=== PATIENT | female | born 1960 | race Caucasian/White ===

== ENCOUNTER 2017-08-10 06:18 | Observation (INO) | payer MEDICARE, OTHER ==
[~2017-08-10] VITALS: Ht 172.7 cm; Wt 95.0 kg
[2017-08-10 06:25] VITALS: BP 162/69; PULSE 112; RESP 18; TEMP 100.1; O2SAT 98
--- NOTE | 2017-08-10 06:31 | PD ---
HPI Chief Complaint: AMS Time Seen by Provider: 06:37 Travel History International Travel<30 days: No Contact w/Intl Traveler<30days: No Traveled to known affect area: No History of Present Illness HPI 57-year-old female presents under Meneses act initially by the Police Department. According to paramedics patient has been acting manic. Duration of symptoms are unknown. Please were initially called by the of the patient. Paramedics are aware that she is prescribed Xanax and fentanyl but she has reportedly been out of these medications for the past 4 days. Any additional past medical or psychiatric history is unobtainable at this time. Upon examination the patient is altered, making nonsensical statements such as "blew off biggest [place] [employer] [place] She is noted to have an elevated temperature of 100.1 orally she is tachycardic. According her Meneses act form she was hallucinating and attempted to jump through a window at her residence. [facility] Social History Tobacco Use: No (unable to obtain) Allergies-Medications (Allergen,Severity, Reaction): Coded Allergies: Penicillins (Verified Allergy, Unknown, 08/10/17) Reported Meds & Prescriptions Reported Meds & Active Scripts Active Active Prescriptions or Reported Medications Unobtainable Review of Systems ROS Limitations: Altered Mental Status Except as stated in HPI: all other systems reviewed are Neg Physical Exam Exam Limitations: Altered Mental Status Narrative GENERAL: Well-developed well-nourished female who is in no acute distress. She is alert to person but not place or time. SKIN: Warm and dry. HEAD: Atraumatic. Normocephalic. EYES: Pupils equal and round, dilated, extraocular muscles are intact. No scleral icterus. No injection or drainage. ENT: No nasal bleeding or discharge. Mucous membranes pink and moist. NECK: Trachea midline. No JVD. No lymphadenopathy. Neck is supple full range of motion. CARDIOVASCULAR: Regular rate and rhythm. No murmur appreciated. RESPIRATORY: No accessory muscle use. Clear to auscultation. Breath sounds equal bilaterally. GASTROINTESTINAL: Abdomen soft, non-tender, nondistended. Hepatic and splenic margins not palpable. MUSCULOSKELETAL: No obvious deformities. No clubbing. No cyanosis. No edema. There is no obvious tenderness to palpation along the neck or back. NEUROLOGICAL: Awake and alert. No obvious cranial nerve deficits. Motor grossly within normal limits rapid speech. PSYCHIATRIC: insight and judgment are grossly impaired. Data Data Last Documented VS Vital Signs Date Time Temp Pulse Resp B/P (MAP) Pulse Ox O2 Delivery O2 Flow Rate FiO2 08/10/17 07:42 93 18 139/67 (91) 98 Room Air 08/10/17 06:25 100.1 Orders Orders Electrocardiogram (08/10/17 06:40) Ammonia (08/10/17 06:40) Complete Blood Count With Diff (08/10/17 06:40) Comprehensive Metabolic Panel (08/10/17 06:40) Thyroid Stimulating Hormone (08/10/17 06:40) Urinalysis - C+S If Indicated (08/10/17 06:40) Lactic Acid Sepsis Protocol (08/10/17 06:40) Blood Culture (08/10/17 06:40) Chest, Single Ap (08/10/17 06:40) Ct Brain W/O Iv Contrast(Rout) (08/10/17 06:40) Blood Glucose (08/10/17 06:40) Ecg Monitoring (08/10/17 06:40) Iv Access Insert/Monitor (08/10/17 06:40) Oximetry (08/10/17 06:40) Sodium Chloride 0.9% Flush (Ns Flush) (08/10/17 06:45) Sodium Chlor 0.9% 1000 Ml Inj (Ns 1000 M (08/10/17 06:40) Drug Screen, Random Urine (08/10/17 06:40) Alcohol (Ethanol) (08/10/17 06:40) Psych Screen (08/10/17 06:40) Prothrombin Time / Inr (Pt) (08/10/17 08:04) Act Partial Throm Time (Ptt) (08/10/17 08:04) Lorazepam Inj (Ativan Inj) (08/10/17 08:15) Vancomycin Inj (Vancomycin Inj) (08/10/17 08:15) Ceftriaxone Inj (Rocephin Inj) (08/10/17 08:15) Urine Culture (08/10/17 07:30) Admit Order (Ed Use Only) (08/10/17 09:38) Morphine Inj (Morphine Inj) (08/10/17 09:45) Labs Laboratory Tests Test 08/10/17 06:45 08/10/17 07:30 08/10/17 08:25 White Blood Count 10.5 TH/MM3 Red Blood Count 4.45 MIL/MM3 Hemoglobin 13.4 GM/DL Hematocrit 39.4 % Mean Corpuscular Volume 88.5 FL Mean Corpuscular Hemoglobin 30.1 PG Mean Corpuscular Hemoglobin Concent 34.0 % Red Cell Distribution Width 13.3 % Platelet Count 556 TH/MM3 Mean Platelet Volume 7.0 FL Neutrophils (%) (Auto) 82.2 % Lymphocytes (%) (Auto) 11.5 % Monocytes (%) (Auto) 5.9 % Eosinophils (%) (Auto) 0.1 % Basophils (%) (Auto) 0.3 % Neutrophils # (Auto) 8.6 TH/MM3 Lymphocytes # (Auto) 1.2 TH/MM3 Monocytes # (Auto) 0.6 TH/MM3 Eosinophils # (Auto) 0.0 TH/MM3 Basophils # (Auto) 0.0 TH/MM3 CBC Comment DIFF FINAL Differential Comment Blood Urea Nitrogen 17 MG/DL Creatinine 0.92 MG/DL Random Glucose 81 MG/DL Total Protein 8.4 GM/DL Albumin 4.4 GM/DL Calcium Level 9.8 MG/DL Alkaline Phosphatase 105 U/L Aspartate Amino Transf (AST/SGOT) 20 U/L Alanine Aminotransferase (ALT/SGPT) 34 U/L Total Bilirubin 0.8 MG/DL Sodium Level 142 MEQ/L Potassium Level 3.0 MEQ/L Chloride Level 106 MEQ/L Carbon Dioxide Level 21.6 MEQ/L Anion Gap 14 MEQ/L Estimat Glomerular Filtration Rate 63 ML/MIN Lactic Acid Level 1.8 mmol/L Ammonia LESS THAN 10 MCMOL/L Thyroid Stimulating Hormone 3rd Gen 1.720 uIU/ML Ethyl Alcohol Level LESS THAN 3 MG/DL Urine Color YELLOW Urine Turbidity CLEAR Urine pH 6.0 Urine Specific [place] 1.032 Urine Protein 30 mg/dL Urine Glucose (UA) NEG mg/dL Urine Ketones 40 mg/dL Urine Occult Blood NEG Urine Nitrite NEG Urine Bilirubin NEG Urine Urobilinogen 4.0 MG/DL Urine Leukocyte Esterase NEG Urine RBC 1 /hpf Urine WBC 1 /hpf Urine Bacteria OCC /hpf Urine Mucus FEW /lpf Microscopic Urinalysis Comment CATH-CULTURE IND Urine Opiates Screen NEG Urine Barbiturates Screen NEG Urine Amphetamines Screen NEG Urine Benzodiazepines Screen POS Urine Cocaine Screen NEG Urine Cannabinoids Screen NEG Prothrombin Time 11.3 SEC Prothromb Time International Ratio 1.1 RATIO Activated Partial Thromboplast Time 25.5 SEC MDM Medical Decision Making Medical Screen Exam Complete: Yes Emergency Medical Condition: Yes Medical Record Reviewed: Yes Differential Diagnosis Encephalitis, meningitis, bipolar disorder, acute psychosis, substance-induced mood disorder, opiate withdrawal Narrative Course The patient was placed on ECG monitoring pulse oximetry. A 12 EKG was obtained. Plan is for lab work, chest x-ray, CT the brain, blood cultures. Patient was given IV fluids. Certainly her presentation could be consistent with a manic episode versus potentially meningitis or encephalitis. 0655: I spoke with the patient's Shahram Santos ([phone]) who provides additional history. He reports that the patient ran out of her prescribed fentanyl, morphine and Xanax 4-5 days ago. She has been acting bizarre over the past 3-4 days. Specifically he says that she has been acting lethargic and delusional. 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 He does report that she is also prescribed Wellbutrin. No recent medical complaints at home. He also reports that she has a penicillin allergy but he is uncertain what kind of adverse reaction she has to penicillin. 0700: At the end of my shift the patient was signed out to the oncoming provider for disposition pending all of the lab work and imaging studies. Scripts Unable to Obtain Active Prescriptions or Reported Meds Bruno Newman Aug 10, 2017 06:31
[2017-08-10] MEDS ORDERED: SODIUM CHLOR 0.9% 1000 ML INJ 1,000 ML IV SCH (06:40)
[2017-08-10] MEDS ORDERED: SODIUM CHLORIDE 0.9% FLUSH 10 ML FLUSH IV FLUSH PRN (06:45)
--- NOTE | 2017-08-10 06:59 | RADRPT ---
EXAM DATE: 08/10/2017 6:55 AM EDT AGE/SEX: 57 years / Female INDICATIONS: Fever, altered mental status. CLINICAL DATA: This is the patient's initial encounter. Patient reports that signs and symptoms have been present for 1 day and indicates a pain score of Nonresponsive. MEDICAL/SURGICAL HISTORY: Non-responsive. Non-responsive. COMPARISON: No prior [facility] exams available for comparison. FINDINGS: A single AP view of the chest demonstrates the lungs to be symmetrically aerated without evidence of mass, infiltrate or effusion. The cardiomediastinal contours are unremarkable. Osseous structures a re intact. CONCLUSION: No acute intrathoracic disease. Electronically signed by: Brandon Frias MD 08/10/2017 6:58 AM EDT
[2017-08-10 07:04] LABS: AUTOMATED NEUTROPHIL # 8.6 TH/MM3 (1.8-7.7); BASOPHIL % 0.3 % (0.0-2.0); EOSINOPHIL % 0.1 % (0.0-4.0); HEMATOCRIT 39.4 % (35.0-46.0); HEMOGLOBIN 13.4 GM/DL (11.6-15.3); LYMPH % 11.5 % (9.0-44.0); LYMPHOCYTE # 1.2 TH/MM3 (1.0-4.8); MEAN CELL VOLUME 88.5 FL (80.0-100.0); MEAN CORPUSCULAR HEMOGLOBIN 30.1 PG (27.0-34.0); MONO % 5.9 % (0.0-8.0); MONOCYTE # 0.6 TH/MM3 (0-0.9); NEUT % 82.2 % (16.0-70.0); PLATELET COUNT 556 TH/MM3 (150-450); RED BLOOD COUNT 4.45 MIL/MM3 (4.00-5.30); RED CELL DISTRIBUTION WIDTH 13.3 % (11.6-17.2); WHITE BLOOD COUNT 10.5 TH/MM3 (4.0-11.0)
[2017-08-10 07:24] LABS: ALBUMIN 4.4 GM/DL (3.4-5.0); AST (GOT) 20 U/L (15-37); BICARBONATE 21.6 MEQ/L (21.0-32.0); BLOOD UREA NITROGEN 17 MG/DL (7-18); CALCIUM 9.8 MG/DL (8.5-10.1); CHLORIDE 106 MEQ/L (98-107); CREATININE 0.92 MG/DL (0.50-1.00); GLOMERULAR FILTRATION RATE 63 ML/MIN (>89); GLUCOSE,RANDOM 81 MG/DL (74-106); SODIUM (NA) 142 MEQ/L (136-145)
[2017-08-10 07:25] LABS: ALT (GPT) 34 U/L (10-53)
[2017-08-10 07:35] LABS: ALKALINE PHOSPHATASE 105 U/L (45-117); TOTAL BILIRUBIN ADULT 0.8 MG/DL (0.2-1.0); TOTAL PROTEIN 8.4 GM/DL (6.4-8.2)
[2017-08-10 07:42] VITALS: BP 139/67; PULSE 93; RESP 18; O2SAT 98
--- NOTE | 2017-08-10 07:57 | RADRPT ---
EXAM DATE: 08/10/2017 7:53 AM EDT AGE/SEX: 57 years / Female INDICATIONS: Altered mental status CLINICAL DATA: This is the patient's initial encounter. Patient reports that signs and symptoms have been present for 1 day and indicates a pain score of 0/10. MEDICAL/SURGICAL HISTORY: None. None. RADIATION DOSE: 34.73 CTDI (mGy) COMPARISON: No prior [facility] exams available for comparison. TECHNIQUE: CT of the head without contrast. Using automated exposure control and adjustment of the mA and/or kV according to patient size, radiation dose was kept as low as reasonably achievable to ob tain optimal diagnostic quality images. FINDINGS: Cerebrum: The ventricles are normal for age. No evidence of midline shift, mass lesion, hemorrhage or acute infarction. No extraaxial fluid collections are seen. Posterior Fossa: The cerebellum and brainstem are intact. The 4th ventricle is midline. The cerebe llopontine angle is unremarkable. Extracranial: The visualized portion of the orbits is intact. Skull: The calvaria is intact. No evidence of skull fracture. CONCLUSION: Negative CT Head non contrast. Electronically signed by: Jim Gonsalves MD 08/10/2017 7:56 AM EDT
[2017-08-10 08:05] LABS: BLOOD, URINE NEG (NEG); GLUCOSE,URINE NEG (NEG); KETONE, URINE 40 mg/dL (NEG); MUCUS URINE FEW /lpf (OCC); NITRITE,URINE NEG (NEG); URINE COLOR YELLOW (YELLW/STRAW); URINE LEUKOCYTE ESTERASE NEG (NEG)
[2017-08-10 08:10] LABS: BILIRUBIN, URINE NEG (NEG)
[2017-08-10 08:13] LABS: BACTERIA, URINE OCC /hpf
[2017-08-10] MEDS ORDERED: LORazepam 2 MG/ML VIAL IV PUSH ONE (08:15)
[2017-08-10] MEDS ORDERED: cefTRIAXone INJ 2,000 MG in SODIUM CHLORIDE 0.9% INJ 100 ML IV ONE (08:15)
[2017-08-10] MEDS ORDERED: VANCOMYCIN INJ 1,000 MG in SODIUM CHLOR 0.9% 250 ML INJ 250 ML IV ONE (08:15)
[2017-08-10 08:52] LABS: INTERNATIONAL NORMALIZED RATIO 1.1 RATIO; PROTHROMBIN TIME - PATIENT 11.3 SEC (9.8-11.6)
[2017-08-10] MEDS ORDERED: MORPHINE SULFATE 2 MG/ML SYRINGE IV PUSH ONE (09:45)
--- NOTE | 2017-08-10 09:46 | PD ---
Data Data Last Documented VS Vital Signs Date Time Temp Pulse Resp B/P (MAP) Pulse Ox O2 Delivery O2 Flow Rate FiO2 08/10/17 07:42 93 18 139/67 (91) 98 Room Air 08/10/17 06:25 100.1 Orders Orders Electrocardiogram (08/10/17 06:40) Ammonia (08/10/17 06:40) Complete Blood Count With Diff (08/10/17 06:40) Comprehensive Metabolic Panel (08/10/17 06:40) Thyroid Stimulating Hormone (08/10/17 06:40) Urinalysis - C+S If Indicated (08/10/17 06:40) Lactic Acid Sepsis Protocol (08/10/17 06:40) Blood Culture (08/10/17 06:40) Chest, Single Ap (08/10/17 06:40) Ct Brain W/O Iv Contrast(Rout) (08/10/17 06:40) Blood Glucose (08/10/17 06:40) Ecg Monitoring (08/10/17 06:40) Iv Access Insert/Monitor (08/10/17 06:40) Oximetry (08/10/17 06:40) Sodium Chloride 0.9% Flush (Ns Flush) (08/10/17 06:45) Sodium Chlor 0.9% 1000 Ml Inj (Ns 1000 M (08/10/17 06:40) Drug Screen, Random Urine (08/10/17 06:40) Alcohol (Ethanol) (08/10/17 06:40) Psych Screen (08/10/17 06:40) Prothrombin Time / Inr (Pt) (08/10/17 08:04) Act Partial Throm Time (Ptt) (08/10/17 08:04) Lorazepam Inj (Ativan Inj) (08/10/17 08:15) Vancomycin Inj (Vancomycin Inj) (08/10/17 08:15) Ceftriaxone Inj (Rocephin Inj) (08/10/17 08:15) Urine Culture (08/10/17 07:30) Admit Order (Ed Use Only) (08/10/17 09:38) Morphine Inj (Morphine Inj) (08/10/17 09:45) Labs Laboratory Tests Test 08/10/17 06:45 08/10/17 07:30 08/10/17 08:25 White Blood Count 10.5 TH/MM3 Red Blood Count 4.45 MIL/MM3 Hemoglobin 13.4 GM/DL Hematocrit 39.4 % Mean Corpuscular Volume 88.5 FL Mean Corpuscular Hemoglobin 30.1 PG Mean Corpuscular Hemoglobin Concent 34.0 % Red Cell Distribution Width 13.3 % Platelet Count 556 TH/MM3 Mean Platelet Volume 7.0 FL Neutrophils (%) (Auto) 82.2 % Lymphocytes (%) (Auto) 11.5 % Monocytes (%) (Auto) 5.9 % Eosinophils (%) (Auto) 0.1 % Basophils (%) (Auto) 0.3 % Neutrophils # (Auto) 8.6 TH/MM3 Lymphocytes # (Auto) 1.2 TH/MM3 Monocytes # (Auto) 0.6 TH/MM3 Eosinophils # (Auto) 0.0 TH/MM3 Basophils # (Auto) 0.0 TH/MM3 CBC Comment DIFF FINAL Differential Comment Blood Urea Nitrogen 17 MG/DL Creatinine 0.92 MG/DL Random Glucose 81 MG/DL Total Protein 8.4 GM/DL Albumin 4.4 GM/DL Calcium Level 9.8 MG/DL Alkaline Phosphatase 105 U/L Aspartate Amino Transf (AST/SGOT) 20 U/L Alanine Aminotransferase (ALT/SGPT) 34 U/L Total Bilirubin 0.8 MG/DL Sodium Level 142 MEQ/L Potassium Level 3.0 MEQ/L Chloride Level 106 MEQ/L Carbon Dioxide Level 21.6 MEQ/L Anion Gap 14 MEQ/L Estimat Glomerular Filtration Rate 63 ML/MIN Lactic Acid Level 1.8 mmol/L Ammonia LESS THAN 10 MCMOL/L Thyroid Stimulating Hormone 3rd Gen 1.720 uIU/ML Ethyl Alcohol Level LESS THAN 3 MG/DL Urine Color YELLOW Urine Turbidity CLEAR Urine pH 6.0 Urine Specific [place] 1.032 Urine Protein 30 mg/dL Urine Glucose (UA) NEG mg/dL Urine Ketones 40 mg/dL Urine Occult Blood NEG Urine Nitrite NEG Urine Bilirubin NEG Urine Urobilinogen 4.0 MG/DL Urine Leukocyte Esterase NEG Urine RBC 1 /hpf Urine WBC 1 /hpf Urine Bacteria OCC /hpf Urine Mucus FEW /lpf Microscopic Urinalysis Comment CATH-CULTURE IND Prothrombin Time 11.3 SEC Prothromb Time International Ratio 1.1 RATIO Activated Partial Thromboplast Time 25.5 SEC [facility] Supervised Visit with ELDON: No Narrative Course This case was initially thought to be a psychiatric case but then was transferred to my pot for me to assume care when it was felt that this was not primarily psychiatric. Patient is floridly psychotic. She is hallucinating. She is talking to people that are not in the room. She does have a low-grade temp of 100.1 on arrival Initially there was thought of meningitis but my clinical suspicion is not high for meningitis. She does not have any meningeal signs or headache. She has normal white cell count and lactate. I did give an initial dose of vancomycin and Rocephin as I could not promptly evaluate her due to other critical patients in my pod when she arrived here. Her reported that she had been out of her benzodiazepine and narcotic for several days. I think medication withdrawal is likely. She does have some psychiatric history as well. She is under Meneses act and will get psychiatric evaluation. 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 She has some hypokalemia. CBC is normal. Urine is clean. Chest x-ray is normal. Brain CT is normal. She has received IV fluid and IV antibiotics. I also gave her 1 mg IV Ativan and 2 mg IV morphine to see if this helps from a withdrawal standpoint I reviewed with the hospitalist will admit with consultation to psychiatry. Diagnosis Primary Impression: Psychosis Qualified Codes: F29 - Unspecified psychosis not due to a substance or known physiological condition Additional Impressions: Medication withdrawal Qualified Codes: F13.239 - Sedative, hypnotic or anxiolytic dependence with withdrawal, unspecified Low grade fever Hypokalemia Admitting Information Admitting Physician Requests: Admit Scripts Unable to Obtain Active Prescriptions or Reported Meds Madan Cabrera MD Aug 10, 2017 09:46
[2017-08-10] MEDS ORDERED: MAGNESIUM HYDROXIDE SUSP 30 ML CUP PO PRN (10:15)
[2017-08-10] MEDS ORDERED: ONDANSETRON ODT 4 MG TAB PO PRN (10:15)
[2017-08-10] MEDS ORDERED: ACETAMINOPHEN 325 MG TAB PO PRN (10:15)
[2017-08-10] MEDS ORDERED: NALOXONE HCL 0.4 MG/ML AMP IV PUSH PRN (10:15)
[2017-08-10] MEDS ORDERED: SENNOSIDES 8.6 MG TAB PO PRN (10:15)
[2017-08-10] MEDS: SODIUM CHLOR 0.9% 1000 ML INJ 1,000 ML IV SCH ×2 (10:28→21:00)
[2017-08-10] MEDS ORDERED: MORPHINE SULFATE 4 MG/ML INJ IV PUSH ONE (10:30)
[2017-08-10] MEDS ORDERED: LORazepam 2 MG/ML VIAL IM PRN (10:30)
[2017-08-10] MEDS ORDERED: LORazepam 2 MG/ML VIAL IV PUSH PRN (10:30)
[2017-08-10] MEDS: HEPARIN SODIUM - SQ 10,000 UNITS/ML VIAL SQ SCH ×2 (10:32→19:00)
[2017-08-10 10:33] VITALS: BP 118/74; PULSE 112; RESP 24; O2SAT 100
--- NOTE | 2017-08-10 11:40 | HHI.HP ---
[facility] Rush Martins M.D. Admission Diagnosis psychosis,benzo/narc withdrawal,low grade temp Diagnoses: Chief Complaint: Under Meneses act due to manic behavior Travel History International Travel<30 Days: No Contact w/Intl Traveler <30 Da: No Traveled to Known Affected Are: No History of Present Illness 57 years old female presented overnight to the ED under Meneses act by the police department for what it reported by the solution strategist "acting sri "according to the solution strategist and the ED note the duration of the symptoms is unknown however when I after I saw the patient I called the and talk to him he reported to me that the symptoms started Tuesday which is 6 days ago waxing and waning over the weekend but it has been steady until now, the reported the patient yelling talking to people that they were not in the room she also tried to break the window of the bathroom which is on the second floor trying to escape. 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 In general I did not feel the information from the was fully articulated since unlikely to give fentanyl for arthritis only. Also the reported patient had a kidney infection about 2 months ago treated with antibiotic however her urinalysis today not very indicative cough infection. The denied significant fever or documented fever, in ED she had a low- grade fever of 100.1 only, when I saw the patient she definitely was talking nonsense words however she was awake alert and oriented 3 she was able to mention the year the month the president and the place correctly. In general is definitely very difficult to obtain any information from the patient herself, discussed with the ED physician she was given a dose of Rocephin and Vanco however with the symptoms has been on for 6 days without fever unlikely to be related to meningitis, physical exam to me revealed dilated pupils which could be due to opioid withdrawal Review of Systems ROS Limitations: Altered Mental Status, Psychotic Past Family Social History Past Medical History Unobtainable Past Surgical History Unobtainable Allergies: Coded Allergies: Penicillins (Verified Allergy, Unknown, 08/10/17) Family History Unobtainable from the patient Social History Unobtainable from the patient and per the no tobacco alcohol or illicit drug abuse Physical Exam Vital Signs Vital Signs Date Time Temp Pulse Resp B/P (MAP) Pulse Ox O2 Delivery O2 Flow Rate FiO2 08/10/17 10:33 112 24 118/74 (89) 100 Room Air 08/10/17 07:42 93 18 139/67 (91) 98 Room Air 08/10/17 06:25 100.1 112 18 162/69 (100) 98 Physical Exam GENERAL: This is a well-nourished, well-developed patient, in no apparent distress. SKIN: No rashes, ecchymoses or lesions. Cool and dry. HEAD: Atraumatic. Normocephalic. No temporal or scalp tenderness. EYES: Pupils equal round dilated and sluggishly react. Extraocular motions intact. No scleral icterus. No injection or drainage. ENT: Nose without bleeding, purulent drainage or septal hematoma. Throat without erythema, tonsillar hypertrophy or exudate. Uvula midline. Airway patent. NECK: Trachea midline. No JVD or lymphadenopathy. Supple, nontender, no meningeal signs. CARDIOVASCULAR: Regular rate and rhythm without murmurs, gallops, or rubs. RESPIRATORY: Clear to auscultation. Breath sounds equal bilaterally. No wheezes , rales, or rhonchi. GASTROINTESTINAL: Abdomen soft, non-tender, nondistended. No hepato-splenomegaly , or palpable masses. No guarding. MUSCULOSKELETAL: Extremities without clubbing, cyanosis, or edema. No joint tenderness, effusion, or edema noted. No calf tenderness. Negative Homans sign bilaterally. NEUROLOGICAL: Awake and alert oriented 3. Cranial nerves II through XII intact. Motor and sensory grossly within normal limits. Five out of 5 muscle strength in all muscle groups. Normal speech. Laboratory Laboratory Tests Test 08/10/17 06:45 08/10/17 07:30 08/10/17 08:25 White Blood Count 10.5 Red Blood Count 4.45 Hemoglobin 13.4 Hematocrit 39.4 Mean Corpuscular Volume 88.5 Mean Corpuscular Hemoglobin 30.1 Mean Corpuscular Hemoglobin Concent 34.0 Red Cell Distribution Width 13.3 Platelet Count 556 Mean Platelet Volume 7.0 Neutrophils (%) (Auto) 82.2 Lymphocytes (%) (Auto) 11.5 Monocytes (%) (Auto) 5.9 Eosinophils (%) (Auto) 0.1 Basophils (%) (Auto) 0.3 Neutrophils # (Auto) 8.6 Lymphocytes # (Auto) 1.2 Monocytes # (Auto) 0.6 Eosinophils # (Auto) 0.0 Basophils # (Auto) 0.0 CBC Comment DIFF FINAL Differential Comment Blood Urea Nitrogen 17 Creatinine 0.92 Random Glucose 81 Total Protein 8.4 Albumin 4.4 Calcium Level 9.8 Alkaline Phosphatase 105 Aspartate Amino Transf (AST/SGOT) 20 Alanine Aminotransferase (ALT/SGPT) 34 Total Bilirubin 0.8 Sodium Level 142 Potassium Level 3.0 Chloride Level 106 Carbon Dioxide Level 21.6 Anion Gap 14 Estimat Glomerular Filtration Rate 63 Lactic Acid Level 1.8 Ammonia LESS THAN 10 Thyroid Stimulating Hormone 3rd Gen 1.720 Ethyl Alcohol Level LESS THAN 3 Urine Color YELLOW Urine Turbidity CLEAR Urine pH 6.0 Urine Specific [place] 1.032 Urine Protein 30 Urine Glucose (UA) NEG Urine Ketones 40 Urine Occult Blood NEG Urine Nitrite NEG Urine Bilirubin NEG Urine Urobilinogen 4.0 Urine Leukocyte Esterase NEG Urine RBC 1 Urine WBC 1 Urine Bacteria OCC Urine Mucus FEW Microscopic Urinalysis Comment CATH-CULTURE IND Prothrombin Time 11.3 Prothromb Time International Ratio 1.1 Activated Partial Thromboplast Time 25.5 Date/Time Source Procedure Growth Status 08/10/17 06:45 Blood Peripheral Aerobic Blood Culture Pending Received 08/10/17 06:45 Blood Peripheral Anaerobic Blood Culture Pending Received 08/10/17 07:30 Urine Catheterized Urine Urine Culture Pending Received Result Diagram: 08/10/1764408/10/1745 Imaging Last Impressions Head CT 08/10/17 0640 Signed Impressions: CONCLUSION: Negative CT Head non contrast. Chest X-Ray 08/10/17639 Signed Impressions: CONCLUSION: No acute intrathoracic disease. Caprini VTE Risk Assessment Caprini VTE Risk Assessment: No/Low Risk (score <= 1) Caprini Risk Assessment Model Point Value = 1 Point Value = 2 Point Value = 3 Point Value = 5 Age 41-60 Minor surgery BMI > 25 kg/m2 Swollen legs Varicose veins or History of unexplained or recurrent spontaneous Oral contraceptives or hormone replacement Sepsis (< 1 month) Serious lung disease, including pneumonia (< 1 month) Abnormal pulmonary function Acute myocardial infarction Congestive heart failure (< 1 month) History of inflammatory bowel disease Medical patient at bed rest Age 61-74 Arthroscopic surgery Major open surgery (> 45 min) Laparoscopic surgery (> 45 min) Malignancy Confined to bed (> 72 hours) Immobilizing plaster cast Central venous access Age >= 75 History of VTE Family history of VTE Factor V Leiden Prothrombin [id number] Lupus anticoagulant Anticardiolipin antibodies Elevated serum homocysteine Heparin-induced thrombocytopenia Other congenital or acquired thrombophilia Stroke (< 1 month) Elective arthroplasty Hip, pelvis, or leg fracture Acute spinal cord injury (< 1 month) Prophylaxis Regimen Total Risk Factor Score Risk Level Prophylaxis Regimen 0-1 Low Early ambulation 2 Moderate Order ONE of the following: *Sequential Compression Device (SCD) *Heparin 5000 units SQ BID 3-4 Higher Order ONE of the following medications: *Heparin 5000 units SQ TID *Enoxaparin/Lovenox 40 mg SQ daily (WT < 150 kg, CrCl > 30 mL/min) *Enoxaparin/Lovenox 30 mg SQ daily (WT < 150 kg, CrCl > 10-29 mL/min) *Enoxaparin/Lovenox 30 mg SQ BID (WT < 150 kg, CrCl > 30 mL/min) AND/OR *Sequential Compression Device (SCD) 5 or more Highest Order ONE of the following medications: *Heparin 5000 units SQ TID (Preferred with Epidurals) *Enoxaparin/Lovenox 40 mg SQ daily (WT < 150 kg, CrCl > 30 mL/min) *Enoxaparin/Lovenox 30 mg SQ daily (WT < 150 kg, CrCl > 10-29 mL/min) *Enoxaparin/Lovenox 30 mg SQ BID (WT < 150 kg, CrCl > 30 mL/min) AND *Sequential Compression Device (SCD) Assessment and Plan Assessment and Plan 57 years old female presented under Meneses act due to manic behavior and acute change in mental status Acute change mental status since 6 days ago with delusions/confusion H/O renal infection 2 months ago History of being on fentanyl patch for hand arthritis History of being on Xanax and Wellbutrin DVT peripheral Plan: Admit for observation Psychiatry consult Keep under Meneses act with sitter Patient received 1 dose of Rocephin and Vanco>> so far no fever, negative lactic acid, no leukocytosis, no hypertension, normal ammonia level CT head personally reviewed by me negative Does not seem to be related to meningitis with the symptoms being over 6 days however still need to be ruled out, will consult neurology may consider LP/MRI Check CK rule out any psychotic drug interaction We will Place Ativan as needed only for withdrawal or seizure symptoms Discussed with the in length over the phone D/W ED physician and nurse Addendum: 1 PM I talked to Dr. Pfeiffer personally discussed the case with her, she agreed with MRI and EEG, and that is unlikely to be meningitis however she graciously will see the patient And decide if after we will need LP Maday Rodríguez MD Aug 10, 2017 11:39
[2017-08-10 12:00] VITALS: BP 134/73; PULSE 103; RESP 18; O2SAT 100
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
--- NOTE | 2017-08-10 14:34 | MG ---
cc: Jayjay Manuel MD, PhD EEG TEST NUMBER: [id number] TECHNIQUE: A 17-channel EEG. DESCRIPTION: Background rhythm shows initially symmetrical alpha rhythm with a frequency of 8 Hz. The amplitude is about 20 microvolts. There is fairly frequent eye movement artifact as well as muscle artifact. There is mild slowing in the theta range, probably related to drowsiness. Hyperventilation was not done. Photic stimulation was performed in a stepwise fashion with a normal posterior driving response. INTERPRETATION: Normal electroencephalogram. Jayjay Manuel MD, PhD MAURICIO/SB , 02:17 PM , 02:34 PM
[2017-08-10] MEDS ORDERED: HALOPERIDOL LACTATE 5 MG/ML AMP IV ONE (15:15)
[2017-08-10 18:15] VITALS: BP 131/68; PULSE 96; PULSE 99; RESP 18; TEMP 98.7; O2SAT 90; O2SAT 96
--- NOTE | 2017-08-10 18:27 | EKG ---
Date Performed: 08/10/2017 Time Performed: 06:20:18 PTAGE: 57 years EKG: Sinus rhythm WITH SINUS ARRHYTHMIA MARKED LEFT AXIS DEVIATION POSSIBLE ANTERIOR MYOCARDIAL INFARCTION DIFFUSE T W AVE CHANGES ABNORMAL ECG NO PREVIOUS TRACING DOCTOR: Lamont Razo Interpretating Date/Time 08/10/2017 18:26:10
[2017-08-10 19:00] VITALS: BP 137/60; PULSE 97; RESP 24; TEMP 98.2; O2SAT 97
[2017-08-10] MEDS: DOCUSATE SODIUM 50 MG/SENNA 8.6 MG TAB PO SCH (22:10)
[2017-08-11 01:11] VITALS: BP 138/67; PULSE 80; RESP 16; TEMP 97.4; O2SAT 98
[2017-08-11] MEDS: HEPARIN SODIUM - SQ 10,000 UNITS/ML VIAL SQ SCH ×2 (03:03→11:00)
[2017-08-11 04:19] VITALS: PULSE 70
[2017-08-11] MEDS: SODIUM CHLOR 0.9% 1000 ML INJ 1,000 ML IV SCH (04:32)
[2017-08-11 05:19] VITALS: BP 132/70; PULSE 81; RESP 16; TEMP 99.1; O2SAT 100
[2017-08-11 05:27] LABS: AUTOMATED NEUTROPHIL # 5.5 TH/MM3 (1.8-7.7); BASOPHIL # 0.1 TH/MM3 (0-0.2); BASOPHIL % 0.7 % (0.0-2.0); EOSINOPHIL % 0.4 % (0.0-4.0); HEMATOCRIT 34.9 % (35.0-46.0); HEMOGLOBIN 11.7 GM/DL (11.6-15.3); LYMPH % 19.3 % (9.0-44.0); LYMPHOCYTE # 1.5 TH/MM3 (1.0-4.8); MEAN CELL VOLUME 88.6 FL (80.0-100.0); MEAN CORPUSCULAR HEMOGLOBIN 29.7 PG (27.0-34.0); MEAN CORPUSCULAR HGB CONC 33.5 % (32.0-36.0); MEAN PLATELET VOLUME 7.2 FL (7.0-11.0); MONO % 7.3 % (0.0-8.0); MONOCYTE # 0.6 TH/MM3 (0-0.9); NEUT % 72.3 % (16.0-70.0); PLATELET COUNT 479 TH/MM3 (150-450); RED BLOOD COUNT 3.94 MIL/MM3 (4.00-5.30); RED CELL DISTRIBUTION WIDTH 13.7 % (11.6-17.2); WHITE BLOOD COUNT 7.6 TH/MM3 (4.0-11.0)
[2017-08-11 06:01] LABS: BICARBONATE 20.1 MEQ/L (21.0-32.0); CALCIUM 8.8 MG/DL (8.5-10.1); CREATININE 0.54 MG/DL (0.50-1.00)
[2017-08-11 08:07] VITALS: BP 147/80; PULSE 95; RESP 18; TEMP 97.9; O2SAT 96
[2017-08-11 08:55] VITALS: O2SAT 99
[2017-08-11] MEDS: DOCUSATE SODIUM 50 MG/SENNA 8.6 MG TAB PO SCH (09:00)
[2017-08-11] MEDS ORDERED: LORazepam 2 MG/ML VIAL IV PUSH PRN ×4 (09:15)
[2017-08-11] MEDS ORDERED: FLUMAZENIL 0.5 MG/5 ML VIAL IV PUSH PRN (09:15)
[2017-08-11] MEDS ORDERED: LORazepam 2 MG TAB PO PRN (09:15)
[2017-08-11] MEDS ORDERED: LORazepam 1 MG TAB PO PRN (09:15)
[2017-08-11] MEDS ORDERED: HALOPERIDOL LACTATE 5 MG/ML AMP IM PRN (09:30)
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
[2017-08-11] MEDS ORDERED: QUEtiapine FUMARATE 25 MG TAB PO SCH (12:00)
[2017-08-11 12:29] VITALS: BP 148/77; PULSE 95; RESP 20; TEMP 99.1; O2SAT 96
[2017-08-11] MEDS ORDERED: GADODIAMIDE PF 287 MG/ML 20 ML VIAL (for RAD MRI) IVCONTRAST ONE (14:30)
--- NOTE | 2017-08-11 14:50 | RADRPT ---
EXAM DATE: 08/11/2017 2:36 PM EDT AGE/SEX: 57 years / Female INDICATIONS: Altered mental status. Psychosis. CLINICAL DATA: This is the patient's initial encounter. Patient reports that signs and symptoms have been present for 1 day and indicates a pain score of 0/10. MEDICAL/SURGICAL HISTORY: None. section. Face lift and lap band. COMPARISON: No prior exams available for comparison. TECHNIQUE: Multiplanar, multisequence examination of the brain was performed without and with 19 ml O mniscan (gadodiamide) contrast as a single exam dose. FINDINGS: Cerebrum: The ventricles are normal for age. No evidence of midline shift, mass lesion, hemorrhage or acute infarction. No extraaxial fluid collections are seen. The pituitary gland and suprasellar cistern are normal in configuration. White Matter: No significant signal abnormalities are seen in the white matter. Posterior Fossa: The cerebellum and brainstem are intact. The 4th ventricle is midline. The cerebel lopontine angle is unremarkable. The cerebellar tonsils are normal in position. Diffusion Imaging: No focal areas of restricted diffusion are seen. No evidence of acute infarction . Extracranial: The visualized portions of the orbits and paranasal sinuses are unremarkable. Post Contrast: No abnormal areas of parenchymal or dural enhancement. No evidence of blood-brain ba rrier breakdown. CONCLUSION: Negative MR Brain with and without contrast. Electronically signed by: Jim Gonsalves MD 08/11/2017 2:49 PM EDT
[2017-08-11] MEDS ORDERED: HALO5P IM (14:56)
[2017-08-11] MEDS ORDERED: SERO25TA PO (14:56)
--- NOTE | 2017-08-11 14:59 | HHI.DCPOC ---
Discharge Care Plan Diagnosis: (1) Unspecified psychosis (2) Hypokalemia (3) Low grade fever Goals to Promote Your Health * To prevent worsening of your condition and complications * To maintain your health at the optimal level Directions to Meet Your Goals Take your medications as prescribed Follow your dietary instruction Follow activity as directed Keep your appointments as scheduled Take your immunizations and boosters as scheduled If your symptoms worsen call your PCP, if no PCP go to Urgent Care Center or Emergency Room Smoking is Dangerous to Your Health. Avoid second hand smoke Call the 24-hour hour crisis hotline for domestic abuse at Madan Reyes MD Aug 11, 2017 14:59
[2017-08-11] MEDS ORDERED: POTASSIUM CHLORIDE 10 MEQ CONTROLLED RELEASE TAB PO ONE (15:00)
--- NOTE | 2017-08-11 15:08 | HHI.PR ---
Subjective Remarks Follow-up mental status change. The patient just returned from MRI. She states that she feels okay. Her friend at bedside states that she is nowhere near her baseline mental status. She states that in the 28 years they have been friends, she has never seen anything like this from the patient. Objective Vitals Vital Signs Date Time Temp Pulse Resp B/P (MAP) Pulse Ox O2 Delivery O2 Flow Rate FiO2 08/11/17 12:29 99.1 95 20 148/77 (100) 96 08/11/17 08:55 99 21 08/11/17 08:07 97.9 95 18 147/80 (102) 96 08/11/17 05:19 99.1 81 16 132/70 (90) 100 08/11/17 04:19 70 08/11/17 01:11 97.4 80 16 138/67 (90) 98 08/10/17 19:00 98.2 97 24 137/60 (85) 97 08/10/17 18:15 98.7 96 18 131/68 (89) 96 I/O 08/10/17 08/10/17 08/10/17 08/11/17 08/11/17 08/11/17 07:00 15:00 23:00 07:00 15:00 23:00 Intake Total 1350 ml Balance 1350 ml Intake IV Total 1350 ml # Voids 2 # Bowel Movements 1 1 Result Diagram: 08/11/17 0415 08/11/17 0415 Imaging Last Impressions Brain MRI 08/11/17 0000 Signed Impressions: CONCLUSION: Negative MR Brain with and without contrast. Head CT 08/10/17 0640 Signed Impressions: CONCLUSION: Negative CT Head non contrast. Chest X-Ray 08/10/17 0640 Signed Impressions: CONCLUSION: No acute intrathoracic disease. Objective Remarks General: Disheveled female in no acute distress. Heart: Regular rate and rhythm. No murmur. Lungs: Clear to auscultation bilaterally. No wheezes, rales, or rhonchi. Breathing is nonlabored. Abdomen: Soft, nontender, nondistended. Extremities: No lower extremity edema. Multiple scars on the right hand and wrist. Psych: Alert, confused. Flight of ideas, delusional. Neuro: Normal speech. No focal deficits noted. Procedures None Urinary Catheter: No Vascular Central Line Catheter: No A/P Assessment and Plan 1. Acute mental status change with delusions: Appreciate psychiatry recommendations. Likely psychiatric etiology. Neurologic workup has been negative so far. MRI is negative. Discussed with Dr. Pfeiffer, neurology. Will transfer to medical/psychiatric unit. The patient was admitted under Meneses act. 2. Low-grade fever: Uncertain etiology. Patient has been afebrile since. No other signs of infection. No need for antibiotics at this time. 3. DVT prophylaxis: SCDs. Discharge Planning Transfer to medical/psychiatric unit. Madan Reyes MD Aug 11, 2017 15:08
--- NOTE | 2017-08-11 17:57 | EKG ---
Date Performed: 08/10/2017 Time Performed: 19:14:44 PTAGE: 57 years EKG: Sinus rhythm LOW QRS VOLTAGE IN PRECORDIAL LEADS ANTEROSEPTAL MYOCARDIAL INFARCTION Nonspecific ST-T wave changes . When compared to previous tracing, there has been no significant Serial change. ABNORMAL ECG PREVIOUS TRACING : 08/10/2017 06.20 DOCTOR: Missy Muñoz Interpretating Date/Time 08/11/2017 17:56:26
[2017-08-12] MEDS ORDERED: FENT1PAT (12:09)
[2017-08-12] MEDS ORDERED: MSIR15 PO (12:09)
[2017-08-12] MEDS ORDERED: ALPR1TAB3 PO (12:09)
== END 2017-08-11 17:13 ==
LOC: NEPE 06:18 → INTOOBSV 09:40 → NEDA 09:40 → NEPFCDU 13:21
PROVIDERS: ADMIT Family Medicine; ATTEND Family Medicine
DX: F23 Brief psychotic disorder (principal); F13.239 Sedative, hypnotic or anxiolytic dependence with withdrawal, unspecified; R00.0 Tachycardia, unspecified; R50.9 Fever, unspecified; R53.83 Other fatigue; Z88.0 Allergy status to penicillin; E87.6 Hypokalemia; Z79.899 Other long term (current) drug therapy; R94.31 Abnormal electrocardiogram [ECG] [EKG]
CPT/HCPCS: 70450; 70553; 71045; 80048; 80053; 80307; 81001; 82140; 82550; 82552; 82948; 83605; 84443; 84703; 85025; 85610; 85730; 87040; 87086; 93005; 95819; 96361; 96365; 96367; 96372; 96375; 96376; 99285; A9579; G0378; J0696; J1630; J1644; J2060; J2270; J3370; J7030; J7050

== ENCOUNTER 2017-08-11 16:41 | Inpatient (IN) | payer MEDICARE ==
[~2017-08-11] VITALS: Ht 170.2 cm; Wt 90.0 kg
[~2017-08-11 16:41] MED LIST: HALO5P IM; SERO25TA PO
[2017-08-11] MEDS ORDERED: ALUMINUM/MAGNESIUM/SIMETH 30 ML CUP PO PRN (17:45)
[2017-08-11] MEDS ORDERED: LORazepam 2 MG/ML VIAL IV PUSH PRN ×4 (17:45)
[2017-08-11] MEDS ORDERED: HALOPERIDOL LACTATE 5 MG/ML AMP IM PRN (17:45)
[2017-08-11] MEDS ORDERED: LORazepam 0.5 MG TAB PO PRN (17:45)
[2017-08-11] MEDS ORDERED: LORazepam 2 MG TAB PO PRN (17:45)
[2017-08-11] MEDS ORDERED: LORazepam 1 MG TAB PO PRN (17:45)
[2017-08-11] MEDS ORDERED: LORazepam 2 MG/ML VIAL IM PRN ×2 (17:45)
[2017-08-11] MEDS ORDERED: FLUMAZENIL 0.5 MG/5 ML VIAL IV PUSH PRN (17:45)
[2017-08-11] MEDS ORDERED: MAGNESIUM HYDROXIDE SUSP 30 ML CUP PO PRN (17:45)
[2017-08-11 18:33] VITALS: BP 134/78; PULSE 113; RESP 18; TEMP 98.3
[2017-08-12 05:52] VITALS: BP 160/74; PULSE 88; RESP 20; TEMP 98.2; O2SAT 97
[2017-08-12 07:30] LABS: BICARBONATE 23.5 MEQ/L (21.0-32.0); BLOOD UREA NITROGEN 8 MG/DL (7-18); CALCIUM 8.8 MG/DL (8.5-10.1); CHLORIDE 111 MEQ/L (98-107); CHOLESTEROL 180 MG/DL (120-200); CREATININE 0.51 MG/DL (0.50-1.00); GLOMERULAR FILTRATION RATE 125 ML/MIN (>89); GLUCOSE,RANDOM 88 MG/DL (74-106); SODIUM (NA) 145 MEQ/L (136-145); TRIGLYCERIDES 62 MG/DL (42-150)
[2017-08-12 07:32] LABS: CHOLESTEROL/ HDL RATIO 3.42 RATIO; HDL CHOLESTEROL 52.5 MG/DL (40.0-60.0); LDL CHOLESTEROL 115 MG/DL (0-99)
[2017-08-12] MEDS ORDERED: QUEtiapine FUMARATE 25 MG TAB PO SCH (09:00)
[2017-08-12] MEDS: NICOTINE 21 MG/24 HR PATCH T-DERMAL SCH (09:00)
[2017-08-12] MEDS: REMOVE OLD NICODERM (NICOTINE) PATCH T-DERMAL SCH (09:00)
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
[2017-08-12] MEDS ORDERED: FENT1PAT (12:09)
[2017-08-12] MEDS ORDERED: MSIR15 PO (12:09)
[2017-08-12] MEDS ORDERED: ALPR1TAB3 PO (12:09)
[2017-08-12 12:34] LABS: AUTOMATED NEUTROPHIL # 4.4 TH/MM3 (1.8-7.7); BASOPHIL # 0.1 TH/MM3 (0-0.2); BASOPHIL % 0.9 % (0.0-2.0); EOSINOPHIL # 0.1 TH/MM3 (0-0.4); EOSINOPHIL % 1.7 % (0.0-4.0); HEMATOCRIT 35.9 % (35.0-46.0); LYMPH % 23.6 % (9.0-44.0); LYMPHOCYTE # 1.5 TH/MM3 (1.0-4.8); MEAN CELL VOLUME 89.9 FL (80.0-100.0); MEAN CORPUSCULAR HGB CONC 33.4 % (32.0-36.0); MEAN PLATELET VOLUME 7.9 FL (7.0-11.0); MONO % 7.2 % (0.0-8.0); MONOCYTE # 0.5 TH/MM3 (0-0.9); NEUT % 66.6 % (16.0-70.0); PLATELET COUNT 427 TH/MM3 (150-450); RED BLOOD COUNT 3.99 MIL/MM3 (4.00-5.30); WHITE BLOOD COUNT 6.5 TH/MM3 (4.0-11.0)
[2017-08-12] MEDS ORDERED: FENTANYL 75 MCG SCH (13:00)
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
[2017-08-12] MEDS: REMOVE OLD DURAGESIC (FENTANYL) PATCH T-DERMAL SCH (16:00)
[2017-08-12] MEDS: fentaNYL 75 MCG/HR PATCH T-DERMAL SCH (16:00)
[2017-08-12 18:03] VITALS: BP 154/79; PULSE 97; RESP 18; TEMP 97.5; O2SAT 97
[2017-08-12 18:04] VITALS: BP 154/79; PULSE 97; RESP 18; TEMP 97.5; O2SAT 97
[2017-08-12] MEDS ORDERED: POTASSIUM CHLORIDE 20 MEQ CONTROLLED RELEASE TAB PO ONE (19:00)
[2017-08-12] MEDS: QUEtiapine FUMARATE 25 MG TAB PO SCH (20:00)
[2017-08-12] MEDS: ACETAMINOPHEN 325 MG TAB PO PRN (21:26)
[2017-08-13 06:00] VITALS: BP 164/79; PULSE 88; RESP 18; TEMP 98.6; O2SAT 95
[2017-08-13] MEDS: NICOTINE 21 MG/24 HR PATCH T-DERMAL SCH (08:43)
[2017-08-13] MEDS: QUEtiapine FUMARATE 25 MG TAB PO SCH ×2 (08:43→21:02)
[2017-08-13] MEDS: REMOVE OLD NICODERM (NICOTINE) PATCH T-DERMAL SCH (08:43)
[2017-08-13 09:49] LABS: ALBUMIN 3.8 GM/DL (3.4-5.0); BICARBONATE 21.4 MEQ/L (21.0-32.0); CALCIUM 9.1 MG/DL (8.5-10.1); CREATININE 0.68 MG/DL (0.50-1.00); PHOSPHORUS 4.3 MG/DL (2.5-4.9)
--- NOTE | 2017-08-13 11:45 | HHI.PYPN ---
Subjective Remarks Reviewed electronic medical record and discussed case with staff. Follow-up was conducted and day room with MINERVA Faith present. Staff reports that patient seems to be doing better her speech is clearing and she seems calmer although she still reports racing thoughts. Patient was observed ambulating around in the day room. She states that she feels "okay". When asked why she was here she reports that she "decided to get crazy". She believes she is doing better. She states that she slept well last night feels rested and that she has had a good appetite. However, I know that she still seems somewhat disorganized speech occasionally going off into tangents. She denies any side effects from medication although there may be some psychomotor agitation noted. She reports that her visited yesterday she states that it was "not a good visit because he smelled like cigarettes and I hate cigarettes." However, she does state that other than that the visit went very well. She denies suicidal ideations. Reports that she "might have some homicidal ideations however I do not have an exact target yet". She reports that she always has baseline auditory hallucinations which she describes as "women's voices to make excuses". Unable to get her to elaborate beyond that statement. When asked about visual hallucinations she reports that she "sees outside shit". Once again unable to get patient to clarify what her statement means. Mental Status Examination Appearance: Appropriate Consciousness: Alert Orientation: Person Motor Activity: Other (Patient laying in bed unable to ascertain gait) Speech: Unremarkable Language: Adequate Fund of Knowledge: Adequate Attention and Concentration: Other (Poor) Memory: Impaired Mood: Sad, Anxious (I will), Irritable Affect: Other (Slight increased range and intensity) Thought Process & Associations: Circumstantial, Disorganized, Tangential Thought Content: Bizarre thinking Hallucination Type: Auditory, Visual Delusion Type: Bizarre Suicidal Ideation: No Suicidal Plan: No Suicidal Intention: No Homicidal Ideation: No Homicidal Plan: No Homicidal Intention: No Insight: Poor Judgment: Poor Results Labs Test 08/13/17 08:20 Blood Urea Nitrogen 10 MG/DL Creatinine 0.68 MG/DL Random Glucose 138 MG/DL Albumin 3.8 GM/DL Calcium Level 9.1 MG/DL Phosphorus Level 4.3 MG/DL Magnesium Level 2.0 MG/DL Sodium Level 146 MEQ/L Potassium Level 3.3 MEQ/L Chloride Level 111 MEQ/L Carbon Dioxide Level 21.4 MEQ/L Anion Gap 14 MEQ/L Estimat Glomerular Filtration Rate 90 ML/MIN Vitals/IOs Vital Signs Date Time Temp Pulse Resp B/P (MAP) Pulse Ox O2 Delivery O2 Flow Rate FiO2 08/13/17 06:00 98.6 88 18 164/79 (107) 95 Intake and Output 08/13/17 08/13/17 08/14/17 08:00 16:00 00:00 Intake Total 240 ml Balance 240 ml Assessment & Plan Problem List: (1) BRIEF PSYCHOTIC DISORDER ICD Codes: F23 - BRIEF PSYCHOTIC DISORDER Assessment & Plan Estimated LOS: Continue with current treatment plan. Patient's attending psychiatrist will be back on Tuesday for reevaluation. She appears to still have some lingering symptoms from the psychosis present. Days Justification for Cont. Inpt. Patient continues to be symptomatic for psychosis. Moving her to a lower level of care would likely result in decompensation. Request HC Surrog/Guard Advoc?: Yes Fanny Peterson Aug 13, 2017 11:45
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
[2017-08-13] MEDS ORDERED: POTASSIUM CHLORIDE 10 MEQ CONTROLLED RELEASE TAB PO ONE (13:00)
[2017-08-13 18:14] VITALS: BP 146/71; PULSE 102; RESP 20; TEMP 98; O2SAT 95
[2017-08-14 06:00] VITALS: BP 138/68; PULSE 88; RESP 18; TEMP 98.1; O2SAT 99
[2017-08-14] MEDS: NICOTINE 21 MG/24 HR PATCH T-DERMAL SCH (09:00)
[2017-08-14] MEDS: QUEtiapine FUMARATE 25 MG TAB PO SCH ×2 (09:00→20:44)
[2017-08-14] MEDS: REMOVE OLD NICODERM (NICOTINE) PATCH T-DERMAL SCH (09:00)
[2017-08-14] MEDS: LORazepam 1 MG TAB PO PRN (11:40)
--- NOTE | 2017-08-14 13:35 | HHI.PYPN ---
Subjective Remarks Chart reviewed and patient discussed with MINERVA Faith. Patient is in her room sitting by the bed crying. She states that she wants to go home and does not know where her left her in the hospital. She is confused and easily distracted. Nursing staff reports that she is restless and wandering throughout the unit. She is paranoid about her medications and needs alot of coaching. Patient states, " I am stuck," but she is unable to elaborate what she means by the comment. States she is sleeping and eating ok. Mental Status Examination Appearance: Appropriate Consciousness: Alert Orientation: Person Motor Activity: Other (Patient laying in bed unable to ascertain gait) Speech: Unremarkable Language: Adequate Fund of Knowledge: Adequate Attention and Concentration: Other (Poor) Memory: Impaired Mood: Sad, Anxious, Irritable Affect: Other (Slight increased range and intensity) Thought Process & Associations: Circumstantial, Disorganized, Tangential Thought Content: Bizarre thinking Hallucination Type: Auditory, Visual Delusion Type: Bizarre Suicidal Ideation: No Suicidal Plan: No Suicidal Intention: No Homicidal Ideation: No Homicidal Plan: No Homicidal Intention: No Insight: Poor Judgment: Poor Results Vitals/IOs Vital Signs Date Time Temp Pulse Resp B/P (MAP) Pulse Ox O2 Delivery O2 Flow Rate FiO2 08/14/17 06:00 98.1 88 18 138/68 (91) 99 Intake and Output 08/14/17 08/14/17 08/15/17 08:00 16:00 00:00 Intake Total 240 ml 400 ml Balance 240 ml 400 ml Assessment & Plan Problem List: (1) BRIEF PSYCHOTIC DISORDER ICD Codes: F23 - BRIEF PSYCHOTIC DISORDER Assessment & Plan Estimated LOS: days . Continue with current treatment plan. Patient needs some redirection and emotional support. Justification for Cont. Inpt. Moving patient to a lower level of care may result in decompensation. Request HC Surrog/Guard Advoc?: Yes Jennifer Champion Aug 14, 2017 13:35
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
[2017-08-14] MEDS: REMOVE OLD DURAGESIC (FENTANYL) PATCH T-DERMAL SCH (16:00)
[2017-08-14] MEDS: fentaNYL 75 MCG/HR PATCH T-DERMAL SCH (16:00)
[2017-08-14 17:35] VITALS: BP 121/74; PULSE 106; RESP 17; TEMP 98.2; O2SAT 94
[2017-08-14] MEDS ORDERED: POTASSIUM CHLORIDE 20 MEQ CONTROLLED RELEASE TAB PO ONE (18:00)
[2017-08-14] MEDS ORDERED: MAGNESIUM OXIDE 400 MG TAB PO ONE (18:00)
[2017-08-14 21:45] LABS: CALCIUM 9.9 MG/DL (8.5-10.1); CREATININE 0.74 MG/DL (0.50-1.00)
[2017-08-15] MEDS: LORazepam 1 MG TAB PO PRN ×2 (00:25→20:21)
[2017-08-15 04:52] LABS: BACTERIA, URINE OCC /hpf; BILIRUBIN, URINE NEG (NEG); BLOOD, URINE NEG (NEG); GLUCOSE,URINE NEG (NEG); KETONE, URINE NEG (NEG); MUCUS URINE FEW /lpf (OCC); NITRITE,URINE NEG (NEG); PH, URINE 5.5 (5.0-8.5); SQUAMOUS EPITHELIAL CELL URINE <1 /hpf (0-5); URINE COLOR YELLOW (YELLW/STRAW); URINE LEUKOCYTE ESTERASE MOD (NEG)
[2017-08-15 05:14] VITALS: BP 154/85; PULSE 98; RESP 17; TEMP 98.1; O2SAT 100
[2017-08-15] MEDS: NICOTINE 21 MG/24 HR PATCH T-DERMAL SCH (08:35)
[2017-08-15] MEDS: REMOVE OLD NICODERM (NICOTINE) PATCH T-DERMAL SCH (08:36)
[2017-08-15] MEDS: QUEtiapine FUMARATE 25 MG TAB PO SCH ×2 (08:40→20:22)
[2017-08-15 09:00] LABS: BICARBONATE 26.8 MEQ/L (21.0-32.0); CALCIUM 9.7 MG/DL (8.5-10.1); CREATININE 0.68 MG/DL (0.50-1.00); MAGNESIUM 2.1 MG/DL (1.5-2.5)
--- NOTE | 2017-08-15 09:27 | HHI.PYPN ---
Subjective Remarks Patient is seen today in her room with nurse, chart reviewed, patient complaint medications albeit with some encouragement from the staff, patient discussed with nurse. Patient continues somewhat tearful irritable and vigilant. She states she is thinking somewhat clearer. It appears she does not have very good communication with her about her anticipated return home. She does deny suicidality today. She does deny voices today. We will add Lexapro 10 mg daily to regimen consider discharge 24-48 hours Review of Systems Except as stated in HPI: all other systems reviewed are Neg Mental Status Examination Appearance: Appropriate Consciousness: Alert Orientation: Person Motor Activity: Other (Patient laying in bed unable to ascertain gait) Speech: Unremarkable Language: Adequate Fund of Knowledge: Adequate Attention and Concentration: Other (Poor) Memory: Impaired Mood: Sad, Anxious, Irritable Affect: Other (Slight increased range and intensity) Thought Process & Associations: Circumstantial, Disorganized, Tangential Thought Content: Bizarre thinking Hallucination Type: Auditory, Visual Delusion Type: Bizarre Suicidal Ideation: No Suicidal Plan: No Suicidal Intention: No Homicidal Ideation: No Homicidal Plan: No Homicidal Intention: No Insight: Poor Judgment: Poor Results Labs Test 08/14/17 21:00 08/15/17 04:44 08/15/17 07:45 Blood Urea Nitrogen 15 MG/DL 11 MG/DL Creatinine 0.74 MG/DL 0.68 MG/DL Random Glucose 104 MG/DL 117 MG/DL Calcium Level 9.9 MG/DL 9.7 MG/DL Magnesium Level 2.0 MG/DL 2.1 MG/DL Sodium Level 139 MEQ/L 141 MEQ/L Potassium Level 4.3 MEQ/L 4.3 MEQ/L Chloride Level 104 MEQ/L 105 MEQ/L Carbon Dioxide Level 24.0 MEQ/L 26.8 MEQ/L Anion Gap 11 MEQ/L 9 MEQ/L Estimat Glomerular Filtration Rate 81 ML/MIN 90 ML/MIN Urine Color YELLOW Urine Turbidity CLEAR Urine pH 5.5 Urine Specific [place] 1.012 Urine Protein NEG mg/dL Urine Glucose (UA) NEG mg/dL Urine Ketones NEG mg/dL Urine Occult Blood NEG Urine Nitrite NEG Urine Bilirubin NEG Urine Urobilinogen LESS THAN 2.0 MG/DL Urine Leukocyte Esterase MOD Urine RBC 1 /hpf Urine WBC 3 /hpf Urine Squamous Epithelial Cells <1 /hpf Urine Bacteria OCC /hpf Urine Mucus FEW /lpf Microscopic Urinalysis Comment CULT NOT INDICATED Vitals/IOs Vital Signs Date Time Temp Pulse Resp B/P (MAP) Pulse Ox O2 Delivery O2 Flow Rate FiO2 08/15/17 05:14 98.1 98 17 154/85 (108) 100 Intake and Output 08/15/17 08/15/17 08/16/17 08:00 16:00 00:00 Intake Total 60 ml 240 ml Balance 60 ml 240 ml Assessment & Plan Problem List: (1) BRIEF PSYCHOTIC DISORDER ICD Codes: F23 - BRIEF PSYCHOTIC DISORDER Assessment & Plan Estimated LOS: days patient Continues somewhat psychotic though that is softening her depression is expressing itself more. We will add Lexapro 10 mg daily to the regimen Justification for Cont. Inpt. At this time patient would decompensate place to a lower level of care Discharge Planning Possible return to her home situation Request HC Surrog/Guard Advoc?: Yes Jim Arguello MD Aug 15, 2017 09:27
[2017-08-15] MEDS: ESCITALOPRAM OXALATE 10 MG TAB PO SCH (09:52)
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
[2017-08-15 17:53] VITALS: BP 161/77; PULSE 116; RESP 18; TEMP 98.5; O2SAT 96
[2017-08-16 05:29] VITALS: BP 128/66; PULSE 126; RESP 17; TEMP 97.8
[2017-08-16] MEDS: ESCITALOPRAM OXALATE 10 MG TAB PO SCH (08:45)
[2017-08-16] MEDS: QUEtiapine FUMARATE 25 MG TAB PO SCH ×2 (08:45→20:35)
[2017-08-16] MEDS: REMOVE OLD NICODERM (NICOTINE) PATCH T-DERMAL SCH (09:00)
[2017-08-16] MEDS: NICOTINE 21 MG/24 HR PATCH T-DERMAL SCH (09:00)
--- NOTE | 2017-08-16 10:03 | HHI.PYPN ---
Subjective Remarks Patient is seen in her room with floor staff, chart reviewed, patient complaint medications. Patient continues depressed with somewhat confusing opinions about returning home with . She did deny suicidality today. For now continue treatment Review of Systems Except as stated in HPI: all other systems reviewed are Neg Mental Status Examination Appearance: Appropriate Consciousness: Alert Orientation: Person Motor Activity: Other (Patient laying in bed unable to ascertain gait) Speech: Unremarkable Language: Adequate Fund of Knowledge: Adequate Attention and Concentration: Other (Poor) Memory: Impaired Mood: Sad, Anxious, Irritable Affect: Other (Slight increased range and intensity) Thought Process & Associations: Circumstantial, Disorganized, Tangential Thought Content: Bizarre thinking Hallucination Type: Auditory, Visual Delusion Type: Bizarre Suicidal Ideation: No Suicidal Plan: No Suicidal Intention: No Homicidal Ideation: No Homicidal Plan: No Homicidal Intention: No Insight: Poor Judgment: Poor Results Vitals/IOs Vital Signs Date Time Temp Pulse Resp B/P (MAP) Pulse Ox O2 Delivery O2 Flow Rate FiO2 08/16/17 05:29 97.8 126 17 128/66 (86) 08/15/17 17:53 96 Intake and Output 08/16/17 08/16/17 08/17/17 08:00 16:00 00:00 Intake Total 480 ml Balance 480 ml Assessment & Plan Problem List: (1) BRIEF PSYCHOTIC DISORDER ICD Codes: F23 - BRIEF PSYCHOTIC DISORDER Assessment & Plan Estimated LOS: days patient's vigilance is softening somewhat loose was some confusion about relationship with her where she wants to reside when she leaves here Justification for Cont. Inpt. At this time patient would decompensate a place to the lower level of care Discharge Planning To be determined Request HC Surrog/Guard Advoc?: Yes Jim Arguello MD Aug 16, 2017 10:03
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
[2017-08-16] MEDS: fentaNYL 75 MCG/HR PATCH T-DERMAL SCH (16:00)
[2017-08-16] MEDS: REMOVE OLD DURAGESIC (FENTANYL) PATCH T-DERMAL SCH (16:00)
[2017-08-16 18:43] VITALS: BP 140/87; PULSE 105; RESP 18; TEMP 98; O2SAT 97
[2017-08-17 05:01] VITALS: BP 131/75; PULSE 92; RESP 16; TEMP 97.9; O2SAT 98
[2017-08-17] MEDS: REMOVE OLD NICODERM (NICOTINE) PATCH T-DERMAL SCH (09:00)
[2017-08-17] MEDS: NICOTINE 21 MG/24 HR PATCH T-DERMAL SCH (09:00)
[2017-08-17] MEDS: ESCITALOPRAM OXALATE 10 MG TAB PO SCH (09:11)
[2017-08-17] MEDS: QUEtiapine FUMARATE 25 MG TAB PO SCH ×2 (09:12→20:43)
--- NOTE | 2017-08-17 09:58 | HHI.PYPN ---
Subjective Remarks Patient is seen in her room with nurse Justino, chart reviewed, patient compliant medications, patient discussed with nurse. Patient alert oriented calm cooperative at times somewhat tearful when discussing the relationship between herself her mother and her . Though she still desires to go home with her there is some trepidation related to this. In any event at the present time patient is scheduled for [employer] court hearing tomorrow. I feel at this time patient has the capacity to sign voluntary for this admission thus I will lift 1[employer] allow the patient signed voluntary. Continue treatment Review of Systems Except as stated in HPI: all other systems reviewed are Neg Mental Status Examination Appearance: Appropriate Consciousness: Alert Orientation: Person Motor Activity: Other (Patient laying in bed unable to ascertain gait) Speech: Unremarkable Language: Adequate Fund of Knowledge: Adequate Attention and Concentration: Other (Poor) Memory: Impaired Mood: Sad, Anxious, Irritable Affect: Other (Slight increased range and intensity) Thought Process & Associations: Circumstantial, Disorganized, Tangential Thought Content: Bizarre thinking Hallucination Type: Auditory, Visual Delusion Type: Bizarre Suicidal Ideation: No Suicidal Plan: No Suicidal Intention: No Homicidal Ideation: No Homicidal Plan: No Homicidal Intention: No Insight: Poor Judgment: Poor Results Vitals/IOs Vital Signs Date Time Temp Pulse Resp B/P (MAP) Pulse Ox O2 Delivery O2 Flow Rate FiO2 08/17/17 05:01 97.9 92 16 131/75 (93) 98 Assessment & Plan Problem List: (1) BRIEF PSYCHOTIC DISORDER ICD Codes: F23 - BRIEF PSYCHOTIC DISORDER Assessment & Plan Estimated LOS: days patient continues somewhat vigilant paranoid labile functioning around her relationship between herself mother and her . I feel this time she has the capacity to sign for her hospitalization thus I will lift [employer] act allow her to sign voluntary Justification for Cont. Inpt. At this time patient would decompensate a place to the lower level of care Discharge Planning To be determined Request HC Surrog/Guard Advoc?: No Jim Arguello MD Aug 17, 2017 09:58
[2017-08-17 18:00] VITALS: BP 144/76; PULSE 104; RESP 15; TEMP 98.1; O2SAT 94
[2017-08-18 06:09] VITALS: BP 142/69; PULSE 91; RESP 18; TEMP 98.4; O2SAT 95
[2017-08-18] MEDS: NICOTINE 21 MG/24 HR PATCH T-DERMAL SCH (09:00)
[2017-08-18] MEDS: REMOVE OLD NICODERM (NICOTINE) PATCH T-DERMAL SCH (09:00)
[2017-08-18] MEDS: ESCITALOPRAM OXALATE 10 MG TAB PO SCH (09:18)
[2017-08-18] MEDS: QUEtiapine FUMARATE 25 MG TAB PO SCH ×2 (09:19→20:03)
--- NOTE | 2017-08-18 10:23 | HHI.PYPN ---
Subjective Remarks Patient seen in the pace with nurse Justino, patient continues calm cooperative though at times somewhat confusing showing some significant difficulty in decision making and maintaining a surrogate decision. She now states she wishes to go home with her . The times that seems to wander. Patient denies suicidality voices or visions. For now continue treatment. We will increase scheduled Seroquel to 50 mg twice daily Review of Systems Except as stated in HPI: all other systems reviewed are Neg Mental Status Examination Appearance: Appropriate Consciousness: Alert Orientation: Person Motor Activity: Other (Patient laying in bed unable to ascertain gait) Speech: Unremarkable Language: Adequate Fund of Knowledge: Adequate Attention and Concentration: Other (Poor) Memory: Impaired Mood: Sad, Anxious, Irritable Affect: Other (Slight increased range and intensity) Thought Process & Associations: Circumstantial, Disorganized, Tangential Thought Content: Bizarre thinking Hallucination Type: Auditory, Visual Delusion Type: Bizarre Suicidal Ideation: No Suicidal Plan: No Suicidal Intention: No Homicidal Ideation: No Homicidal Plan: No Homicidal Intention: No Insight: Poor Judgment: Poor Results Vitals/IOs Vital Signs Date Time Temp Pulse Resp B/P (MAP) Pulse Ox O2 Delivery O2 Flow Rate FiO2 08/18/17 06:09 98.4 91 18 142/69 (93) 95 Intake and Output 08/18/17 08/18/17 08/19/17 08:00 16:00 00:00 Intake Total 240 ml Balance 240 ml Assessment & Plan Problem List: (1) BRIEF PSYCHOTIC DISORDER ICD Codes: F23 - BRIEF PSYCHOTIC DISORDER Assessment & Plan Estimated LOS: days patient continues somewhat vigilant but overall calm cooperative if at times somewhat indecisive and confused. Compliant medications see medication adjustment above Justification for Cont. Inpt. At this time patient would decompensate a place to the lower level of care Discharge Planning Probable return home with Request HC Surrog/Guard Advoc?: No Jim Arguello MD Aug 18, 2017 10:23
[2017-08-18] MEDS: REMOVE OLD DURAGESIC (FENTANYL) PATCH T-DERMAL SCH (16:00)
[2017-08-18] MEDS: fentaNYL 75 MCG/HR PATCH T-DERMAL SCH (16:00)
[2017-08-19 05:47] VITALS: BP 141/80; PULSE 114; RESP 18; TEMP 98.4; O2SAT 98
[2017-08-19] MEDS: NICOTINE 21 MG/24 HR PATCH T-DERMAL SCH (09:00)
[2017-08-19] MEDS: REMOVE OLD NICODERM (NICOTINE) PATCH T-DERMAL SCH (09:00)
[2017-08-19] MEDS: QUEtiapine FUMARATE 25 MG TAB PO SCH (09:15)
[2017-08-19] MEDS: ESCITALOPRAM OXALATE 10 MG TAB PO SCH (09:15)
--- NOTE | 2017-08-19 13:13 | HHI.PYPN ---
Subjective Remarks Patient seen in day room with medical student Nora, patient had prior signs and ror. I discussed that with her today patient remained somewhat disorganized and confusing especially relationship to her . I feel patient needs further stabilization and medication management over the weekend. I share this with patient. She agreed to rescind the RR and stay over the weekend. I will increase Seroquel to 100 mg twice daily Review of Systems Except as stated in HPI: all other systems reviewed are Neg Mental Status Examination Appearance: Appropriate Consciousness: Alert Orientation: Person Motor Activity: Other (Patient laying in bed unable to ascertain gait) Speech: Unremarkable Language: Adequate Fund of Knowledge: Adequate Attention and Concentration: Other (Poor) Memory: Impaired Mood: Sad, Anxious, Irritable Affect: Other (Slight increased range and intensity) Thought Process & Associations: Circumstantial, Disorganized, Tangential Thought Content: Bizarre thinking Hallucination Type: Auditory, Visual Delusion Type: Bizarre Suicidal Ideation: No Suicidal Plan: No Suicidal Intention: No Homicidal Ideation: No Homicidal Plan: No Homicidal Intention: No Insight: Poor Judgment: Poor Results Vitals/IOs Vital Signs Date Time Temp Pulse Resp B/P (MAP) Pulse Ox O2 Delivery O2 Flow Rate FiO2 08/19/17 05:47 98.4 114 18 141/80 (100) 98 Assessment & Plan Problem List: (1) BRIEF PSYCHOTIC DISORDER ICD Codes: F23 - BRIEF PSYCHOTIC DISORDER Assessment & Plan Estimated LOS: days patient remained somewhat confused and psychotic, though softer, she medication adjustment above. Patient has rescinded her ROR Justification for Cont. Inpt. At this time patient would decompensate a place to a lower level of care Discharge Planning Probable return home with Request HC Surrog/Guard Advoc?: No Jim Arguello MD Aug 19, 2017 13:13
[2017-08-19 17:21] VITALS: BP 157/88; PULSE 99; RESP 18; TEMP 98.2; O2SAT 100
[2017-08-19] MEDS: QUEtiapine FUMARATE 100 MG TAB PO SCH (20:44)
[2017-08-20 05:47] VITALS: BP 142/78; PULSE 110; RESP 18; TEMP 98.6; O2SAT 96
[2017-08-20] MEDS: ESCITALOPRAM OXALATE 10 MG TAB PO SCH (09:00)
[2017-08-20] MEDS: REMOVE OLD NICODERM (NICOTINE) PATCH T-DERMAL SCH (09:00)
[2017-08-20] MEDS: NICOTINE 21 MG/24 HR PATCH T-DERMAL SCH (09:00)
[2017-08-20] MEDS: QUEtiapine FUMARATE 100 MG TAB PO SCH ×3 (09:00→20:19)
--- NOTE | 2017-08-20 11:20 | HHI.PYPN ---
Subjective Remarks Patient was seen and case discussed with nursing. Patient is minimally engaged during the interview. She says she is feeling "tired" and is asking me how she could wake up. Insight is quite poor. Minimizes her reasons for admission. Could be responding to internal stimuli Mental Status Examination Appearance: Appropriate Consciousness: Alert Orientation: Person Motor Activity: Other (Patient laying in bed unable to ascertain gait) Speech: Unremarkable Language: Adequate Fund of Knowledge: Adequate Attention and Concentration: Other (Poor) Memory: Impaired Mood: Sad, Anxious, Irritable Affect: Other (Slight increased range and intensity) Thought Process & Associations: Circumstantial, Disorganized, Tangential Thought Content: Bizarre thinking Hallucination Type: Auditory, Visual Delusion Type: Bizarre Suicidal Ideation: No Suicidal Plan: No Suicidal Intention: No Homicidal Ideation: No Homicidal Plan: No Homicidal Intention: No Insight: Poor Judgment: Poor Results Vitals/IOs Vital Signs Date Time Temp Pulse Resp B/P (MAP) Pulse Ox O2 Delivery O2 Flow Rate FiO2 08/20/17 05:47 98.6 110 18 142/78 (99) 96 Assessment & Plan Problem List: (1) BRIEF PSYCHOTIC DISORDER ICD Codes: F23 - BRIEF PSYCHOTIC DISORDER Assessment & Plan Continue current treatment plan Justification for Cont. Inpt. Patient would decompensate in a less restrictive setting Request HC Surrog/Guard Advoc?: No Tommy Collins DO Aug 20, 2017 11:20
[2017-08-20] MEDS: fentaNYL 75 MCG/HR PATCH T-DERMAL SCH (16:00)
[2017-08-20] MEDS: REMOVE OLD DURAGESIC (FENTANYL) PATCH T-DERMAL SCH (16:00)
[2017-08-20 17:09] VITALS: BP 158/69; PULSE 101; RESP 16; TEMP 98.7; O2SAT 98
[2017-08-21 06:46] VITALS: BP 147/73; PULSE 112; RESP 18; TEMP 98.2; O2SAT 96
[2017-08-21] MEDS: ESCITALOPRAM OXALATE 10 MG TAB PO SCH (07:53)
[2017-08-21] MEDS: QUEtiapine FUMARATE 100 MG TAB PO SCH ×2 (08:47→20:35)
[2017-08-21] MEDS: REMOVE OLD NICODERM (NICOTINE) PATCH T-DERMAL SCH (08:47)
[2017-08-21] MEDS: NICOTINE 21 MG/24 HR PATCH T-DERMAL SCH (08:58)
--- NOTE | 2017-08-21 12:44 | HHI.PYPN ---
Subjective Remarks Patient was seen and case discussed with nursing. Patient was moved to the 2500 unit after she was disrobing while walking into patient's rooms. Patient is guarded and irritable. Patient says that she is homicidal towards her self and then begins to argue with me that she is not suicidal. Keeps to herself. Internally preoccupied. Was spitting out her Seroquel last night per nursing Mental Status Examination Appearance: Appropriate Consciousness: Alert Orientation: Person Motor Activity: Other (Patient laying in bed unable to ascertain gait) Speech: Unremarkable Language: Adequate Fund of Knowledge: Adequate Attention and Concentration: Other (Poor) Memory: Impaired Mood: Sad, Anxious, Irritable Affect: Other (Slight increased range and intensity) Thought Process & Associations: Circumstantial, Disorganized, Tangential Thought Content: Bizarre thinking Hallucination Type: Auditory, Visual Delusion Type: Bizarre Suicidal Ideation: No Suicidal Plan: No Suicidal Intention: No Homicidal Ideation: No Homicidal Plan: No Homicidal Intention: No Insight: Poor Judgment: Poor Results Vitals/IOs Vital Signs Date Time Temp Pulse Resp B/P (MAP) Pulse Ox O2 Delivery O2 Flow Rate FiO2 08/21/17 06:46 98.2 112 18 147/73 (97) 96 Assessment & Plan Problem List: (1) BRIEF PSYCHOTIC DISORDER ICD Codes: F23 - BRIEF PSYCHOTIC DISORDER Assessment & Plan Continue current treatment plan Justification for Cont. Inpt. Patient would decompensate in a less restrictive setting Request HC Surrog/Guard Advoc?: No Tommy Collins DO Aug 21, 2017 12:44
[2017-08-21 17:05] VITALS: BP 139/65; PULSE 101; RESP 16; TEMP 98.2; O2SAT 95
[2017-08-21] MEDS: ACETAMINOPHEN 325 MG TAB PO PRN (23:34)
[2017-08-22 06:08] VITALS: BP 121/57; PULSE 107; RESP 18; TEMP 98.4; O2SAT 95
[2017-08-22] MEDS: ESCITALOPRAM OXALATE 10 MG TAB PO SCH (08:21)
[2017-08-22] MEDS: QUEtiapine FUMARATE 100 MG TAB PO SCH ×2 (08:22→20:45)
[2017-08-22] MEDS: REMOVE OLD NICODERM (NICOTINE) PATCH T-DERMAL SCH (09:00)
[2017-08-22] MEDS: NICOTINE 21 MG/24 HR PATCH T-DERMAL SCH (09:00)
--- NOTE | 2017-08-22 16:18 | HHI.PYPN ---
Subjective Remarks Patient is seen today with nurse april and counselor Rissa. Patient is alert oriented, very times giving some contradictory statements when asked similar questions in various ways. There is some impression by me that there is a degree of manipulation with this. It appears patient does not want to go home with her . Her has been quite visible here on the department making various demands on my time that occasionally seem inappropriate and excessive. Patient denies suicidality homicidality voices or visions. We will discontinue her fentanyl patch. Continue to observe. I question if there is some manipulation involved with her behaviors. For now continue treatment consider discharge 1-2 days Review of Systems Except as stated in HPI: all other systems reviewed are Neg Mental Status Examination Appearance: Appropriate Consciousness: Alert Orientation: Person Motor Activity: Other (Patient laying in bed unable to ascertain gait) Speech: Unremarkable Language: Adequate Fund of Knowledge: Adequate Attention and Concentration: Other (Poor) Memory: Impaired Mood: Sad, Anxious, Irritable Affect: Other (Slight increased range and intensity) Thought Process & Associations: Circumstantial, Disorganized, Tangential Thought Content: Bizarre thinking Hallucination Type: Auditory, Visual Delusion Type: Bizarre Suicidal Ideation: No Suicidal Plan: No Suicidal Intention: No Homicidal Ideation: No Homicidal Plan: No Homicidal Intention: No Insight: Poor Judgment: Poor Results Vitals/IOs Vital Signs Date Time Temp Pulse Resp B/P (MAP) Pulse Ox O2 Delivery O2 Flow Rate FiO2 08/22/17 06:08 98.4 107 18 121/57 (78) 95 Intake and Output 08/22/17 08/22/17 08/23/17 08:00 16:00 00:00 Intake Total 240 ml Balance 240 ml Assessment & Plan Problem List: (1) BRIEF PSYCHOTIC DISORDER ICD Codes: F23 - BRIEF PSYCHOTIC DISORDER Assessment & Plan Estimated LOS: days patient shows some improvement life with a may be a degree of manipulation in her behaviors at this time. We will discontinue the fentanyl patch. Justification for Cont. Inpt. At this time patient made decompensate a place to a lower level of care Discharge Planning To be determined patient ambiguous about wanting to go with a family member or with her Request HC Surrog/Guard Advoc?: No Jim Arguello MD Aug 22, 2017 16:18
[2017-08-23 06:48] VITALS: BP 123/60; PULSE 94; RESP 16; TEMP 97.9; O2SAT 95
[2017-08-23] MEDS: ESCITALOPRAM OXALATE 10 MG TAB PO SCH (08:14)
[2017-08-23] MEDS: QUEtiapine FUMARATE 100 MG TAB PO SCH (08:15)
[2017-08-23] MEDS: NICOTINE 21 MG/24 HR PATCH T-DERMAL SCH (09:00)
[2017-08-23] MEDS: REMOVE OLD NICODERM (NICOTINE) PATCH T-DERMAL SCH (09:00)
[2017-08-23] MEDS ORDERED: QUET1TAB8 PO (11:46)
[2017-08-23] MEDS ORDERED: ESCI10TA PO (11:46)
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
== END 2017-08-23 13:05 | disposition home or self-care (01) | DRG 885 ==
LOC: H4EA 17:18 → H260 08-18 13:45 → H250 08-20 21:33
PROVIDERS: ADMIT Psychiatry & Neurology Psychiatry; ATTEND Psychiatry & Neurology Psychiatry
DX: F23 Brief psychotic disorder (principal); E87.0 Hyperosmolality and hypernatremia; G90.511 Complex regional pain syndrome I of right upper limb; F11.23 Opioid dependence with withdrawal; M21.231 Flexion deformity, right wrist; G47.00 Insomnia, unspecified; E87.6 Hypokalemia; F22 Delusional disorders; V89.2XXS Person injured in unspecified motor-vehicle accident, traffic, sequela; Y92.410 Unspecified street and highway as the place of occurrence of the external cause; Z81.3 Family history of other psychoactive substance abuse and dependence; Z81.8 Family history of other mental and behavioral disorders; Z88.0 Allergy status to penicillin
CPT/HCPCS: 80048; 80061; 80069; 81001; 83036; 83735; 85025